=== PATIENT | male | born 1970 | race Caucasian/White ===

== ENCOUNTER 2017-03-27 02:48 | Emergency (ER) | payer OTHER ==
[~2017-03-27] VITALS: Ht 182.9 cm; Wt 102.9 kg
[~2017-03-27 02:48] MED LIST: ALLERGY10 M1 PO; AMLODIPINE BESYL5 MG PO; ASPIRIN EC325 MG PO; BUTALB-APAP-CA1 EACH PO; CYCLOBENZAPRINE10 MG PO; DOCUSATE SODIU100 MG PO; ENDOCET 5-3251 EACH PO; HYDROMORPHONE HC2 MG PO; IBUPROFEN200 M1 PO; LABETALOL HCL200 MG PO; OXAYDO5 MG PO; PANTOPRAZOLE SO40 MG PO; TYLENOL COLD M1 EAC1 PO; ZANTAC150 MG PO; ZYRTEC10 M2 PO
[2017-03-27] MEDS ORDERED: KEFLEX500 MG PO (04:07)
[2017-03-27 04:46] VITALS: BP 140/114
[2017-03-27] MEDS ORDERED: ULTRAM50 MG PO (12:54)
[2017-03-27] MEDS ORDERED: MOTRIN800 MG PO (12:57)
== END 2017-03-27 04:47 | disposition home or self-care (01) ==
LOC: EME 02:48
PROC: 0HQGXZZ Repair Left Hand Skin, External Approach (ICD-10-PCS; principal; 2017-03-27)
DX: S68.127A Partial traumatic metacarpophalangeal amputation of left little finger, initial encounter (principal); W17.89XA Other fall from one level to another, initial encounter; F17.200 Nicotine dependence, unspecified, uncomplicated
CPT/HCPCS: 99281; 99284; S0020

== ENCOUNTER 2017-03-27 12:15 | Emergency (ER) | payer OTHER ==
[~2017-03-27] VITALS: Ht 182.9 cm; Wt 101.0 kg
[~2017-03-27 12:15] MED LIST changes: +KEFLEX500 MG PO
[2017-03-27] MEDS ORDERED: ULTRAM50 MG PO (12:54)
[2017-03-27] MEDS ORDERED: MOTRIN800 MG PO (12:57)
[2017-03-27 13:06] VITALS: BP 168/98
== END 2017-03-27 13:17 | disposition home or self-care (01) ==
LOC: EME 12:15
DX: G89.11 Acute pain due to trauma (principal); S61.217A Laceration without foreign body of left little finger without damage to nail, initial encounter; F17.200 Nicotine dependence, unspecified, uncomplicated
CPT/HCPCS: 99281; 99284

== ENCOUNTER 2017-04-05 14:36 | Emergency (ER) | payer OTHER ==
[~2017-04-05] VITALS: Ht 182.9 cm; Wt 101.6 kg
[~2017-04-05 14:36] MED LIST changes: +MOTRIN800 MG PO; +ULTRAM50 MG PO
[2017-04-05] MEDS ORDERED: CLEOCIN300 MG PO (18:39)
[2017-04-05] MEDS ORDERED: ULTRAM50 MG PO (18:39)
[2017-04-05 19:28] VITALS: BP 190/110
== END 2017-04-05 19:29 | disposition home or self-care (01) ==
LOC: EME 14:36
PROC: 2W3KX1Z Immobilization of Left Finger using Splint (ICD-10-PCS; principal; 2017-04-05)
DX: S68.61 Complete traumatic transphalangeal amputation of other and unspecified finger(s) (principal); W20.8XXD Other cause of strike by thrown, projected or falling object, subsequent encounter; L08.9 Local infection of the skin and subcutaneous tissue, unspecified; F17.200 Nicotine dependence, unspecified, uncomplicated
CPT/HCPCS: 99281; 99283; S0020